=== PATIENT | female | born 1960 | race Caucasian/White ===

== ENCOUNTER → 2016-09-13 | Outpatient (CLI) | payer OTHER | LOC: LAB.O 10:46 | PROVIDERS: ATTEND Family Medicine | DX: I10 Essential (primary) hypertension (principal); E78.2 Mixed hyperlipidemia; E55.9 Vitamin D deficiency, unspecified ==

== ENCOUNTER → 2017-02-13 | Outpatient (CLI) | payer OTHER | END | disposition home or self-care (01) | LOC: LAB.O 08:26 | PROVIDERS: ATTEND Obstetrics & Gynecology | DX: Z01.419 Encounter for gynecological examination (general) (routine) without abnormal findings (principal) ==

== ENCOUNTER → 2017-03-18 | Outpatient (CLI) | payer OTHER | END | disposition home or self-care (01) | LOC: YCFC.O 15:34 | PROVIDERS: ATTEND Nurse Practitioner Family | DX: J02.9 Acute pharyngitis, unspecified (principal) ==

== ENCOUNTER → 2017-03-27 | Outpatient (CLI) | payer OTHER | END | disposition home or self-care (01) | LOC: MAMMO 08:09 | PROVIDERS: ATTEND Obstetrics & Gynecology | DX: Z12.31 Encounter for screening mammogram for malignant neoplasm of breast (principal) | CPT/HCPCS: 77063; G0202 ==

== ENCOUNTER → 2017-07-24 | Outpatient (CLI) | payer OTHER | END | disposition home or self-care (01) | LOC: LAB.O 10:05 | PROVIDERS: ATTEND Family Medicine | DX: E78.2 Mixed hyperlipidemia (principal); I10 Essential (primary) hypertension ==

== ENCOUNTER → 2019-03-20 | Outpatient (CLI) | payer BC ==
--- NOTE | 2019-03-20 16:50 | MRI ---
EXAM DESCRIPTION: Lumbar Spine w/o Contrast CLINICAL HISTORY: 58 years Female, RADICULOPATHY COMPARISON: None available. TECHNIQUE: Multiplanar multiecho imaging of the lumbar spine was performed without intravenous contrast administration. FINDINGS: Straightening of the normal lordotic curvature. The vertebral body heights are well-maintained with no acute compression deformity. Multilevel intervertebral disc space narrowing is noted. The conus medullaris terminates at L1 vertebral body. The visualized spinal cord demonstrates no signal abnormality. L1-L2: 2 mm diffuse disc bulge and facet arthropathy with no canal stenosis or neural foraminal narrowing. L2-L3: 2 mm diffuse disc bulge and facet arthropathy with no central canal stenosis or neural foraminal narrowing. L3-L4: 3.4 mm anterolisthesis of L3 over L4. 6 mm posterior disc bulge and facet arthropathy with resultant moderate central canal stenosis. The thecal sac measures 7.5 mm. Mild bilateral neural foraminal narrowing is identified. L4-L5: Mild bilateral facet arthropathy with no central canal stenosis. Minimal bilateral neural foraminal narrowing is identified. L5-S1: No central canal stenosis or neural foraminal narrowing. Mild bilateral facet arthropathy. The visualized prevertebral and paravertebral soft tissues appear unremarkable. IMPRESSION: Moderate central canal stenosis is noted at L3-L4 level secondary to grade 1 anterolisthesis of L3 over L4, 6 mm posterior disc bulge and facet arthropathy. Electronically signed by: George Sharpe MD 03/20/2019 4:49 PM CDT
== END ==
LOC: MRI 10:08
PROVIDERS: ATTEND Family Medicine
DX: M51.16 Intervertebral disc disorders with radiculopathy, lumbar region (principal); M47.26 Other spondylosis with radiculopathy, lumbar region; M48.061 Spinal stenosis, lumbar region without neurogenic claudication; M43.16 Spondylolisthesis, lumbar region

== ENCOUNTER → 2019-08-04 | Outpatient (CLI) | payer BC | LOC: GMA MATASK 11:41 | PROVIDERS: ATTEND Family Medicine | DX: I10 Essential (primary) hypertension (principal); E78.2 Mixed hyperlipidemia ==